=== PATIENT | male | born 1970 | race Caucasian/White ===

== ENCOUNTER 2019-09-05 08:22 | Day surgery (SDC) | payer OTHER ==
--- NOTE | 2019-09-05 13:01 | NUR ---
1220- DRG X2 C/D/I TO LOWER BACK. DENIES HEADACHE OR ANY OTHER NEUROLOGIC SYMPTOMS. Discharge instructions reviewed with patient. Patient verbalizes understanding. Copy given to patient to take home. Ambulatory in Day Surgery, OUT OF DEPARTMENT.
== END 2019-09-05 12:20 | disposition home or self-care (01) ==
LOC: RAD 08:22
DX: M51.17 Intervertebral disc disorders with radiculopathy, lumbosacral region (principal); E78.2 Mixed hyperlipidemia; I11.9 Hypertensive heart disease without heart failure; Z79.899 Other long term (current) drug therapy; G57.13 Meralgia paresthetica, bilateral lower limbs; M51.16 Intervertebral disc disorders with radiculopathy, lumbar region
CPT/HCPCS: 62304; 72132; Q9966